=== PATIENT | female | born 1940 | race Caucasian/White ===

== ENCOUNTER → 2016-07-25 | Outpatient (CLI) | payer MEDICARE, BC ==
[~2016-07-25] MED LIST: ASA325 MG PO; CERAVE453 GM TP; COLACE-DPS100 MG PO; DULCOLAX-DPS5 MG PO; FLEXERIL DPS5 MG PO; MIRALAX PACKET17 GM PO; NEURONTIN DPS300 MG PO; OMEGA-3 KRILL1 EAC3 PO; OXY IR DPS5 MG PO; PROBIOTIC1 EAC1 PO; PROTONIX40 MG PO; SENOKOT S1 TAB PO; SYNTHROID100 MCG PO; THERAPEUTIC MUL1 TAB PO; TYLENOL DPS325 MG PO; ULTRAM DPS50 MG PO; VITAMIN D-32000 UNI1 PO; VITAMIN D1000 UNI1 PO
== END | disposition home or self-care (01) ==
LOC: PTH.S 08:58
DX: Z01.818 Encounter for other preprocedural examination (principal); I10 Essential (primary) hypertension

== ENCOUNTER 2016-08-08 05:37 | Inpatient (IN) | payer MEDICARE, BC ==
[~2016-08-08] VITALS: Ht 162.6 cm; Wt 75.0 kg
--- NOTE | ~2016-08-08 | OR ---
ADMIT: 08/08/2016 RM/LOC: [facility] MR#: [id number] [address] GENO MARTINEZ [address] [place] [address] Operative/Delivery Room Report SEX: F AGE: 76 : 1940 SURGERY DATE: 08/08/2016 SURGEON: Bunny Mera MD [facility] CONSULTANT: Chano Rivero PA-C PREOPERATIVE DIAGNOSIS: Left hip degenerative joint disease. POSTOPERATIVE DIAGNOSIS: Left hip degenerative joint disease. PROCEDURES: 1. Left anterior total hip arthroplasty. 2. Intra-articular Exparel block. ANESTHESIA: Spinal. COMPLICATIONS: None. ESTIMATED BLOOD LOSS: 150 mL. COMPONENTS: 1. A 50 mm Gription pinnacle cup. 2. Two acetabular screws. 3. A hole eliminator. 4. A neutral 32 mm AltrX liner. 5. An 11 mm standard offset Corail stem. 6. A +1 x 32 mm metal head. DESCRIPTION OF PROCEDURE: The patient was taken to the operating room. The correct hip was identified and marked in the preop holding area. The preoperative leg lengths were documented. The patient received a spinal anesthetic. At that point, the patient had traction boots applied. The patient was placed on the AUBURN operative table. A perfect fluoroscopic AP pelvis was obtained along with a perfect AP of the operative hip and printed for preoperative templating purposes. At that point, the left hip was prepped and draped in a standard fashion and an anterior approach was performed. An incision was made lateral and inferior to the anterior superior iliac spine extending distally. Dissection was carried through subcutaneous tissue down to the tensor fascia. The fibers of the tensor fascia were identified in oblique fashion. The tensor fascia was then opened up along its muscle fibers. An Allis clamp was placed on the anterior fascial border. The tensor muscle itself was then swept off with blunt dissection and retracted posteriorly. At that point, the rectus was elevated off the anterior hip capsule. The lateral circumflex vessels were identified and cauterized. A Cobra retractor was placed above the superior femoral neck to retract the tensor posteriorly. The rest of the rectus was elevated off the anterior hip capsule and a second retractor was placed around the medial femoral neck. An L-shaped capsulotomy was performed through the hip capsule down to the intertrochanteric line and extended along the intertrochanteric line to the ADMIT: 08/08/2016 RM/LOC: [address] [facility] MR#: [id number] [address] GENO MARTINEZ [address] [place] [address] Operative/Delivery Room Report SEX: F AGE: 76 : 1940 level of the lesser trochanter. Tag stitches were placed in the medial and lateral border of the hip capsule. We also released the superior hip capsule out of the trochanteric shoulder region. At that point, we placed our Cobra retractors in an intra-articular fashion for improved exposure to complete our capsular releases intra-articularly. A femoral neck cut was then made based on templating using the trochanteric shoulder as a bony landmark. We then externally rotated the hip 20 degrees for improved exposure and removed the femoral head from the acetabulum with no undue difficulty. Once the femoral head was removed, we again completed our capsular release around the inferior femoral neck to the level of lesser trochanter, released the superior capsule off the greater trochanteric shoulder in its entirety. We then placed slight traction on the femur in 20 degrees external rotation and placed a blunt-tip Cobra retractor over the anterior acetabular border. A second blunt Cobra was placed around the posterior acetabular border. All the remaining labrum was excised and an episiotomy performed to the inferior capsule to improve exposure. We cauterized the fovea and removed any remaining tissue in the depth of the acetabulum. We sequentially reamed the acetabulum under direct visualization up to a 51 size reamer. Impacted a 52 Gription [place] cup. Two acetabular screws were now placed with good purchase. Any peripheral osteophytes were circumferentially removed around the acetabular component. A hole eliminator was placed in the acetabular component and a neutral 32-mm AltrX liner was impacted within the acetabular component. A partial intra- articular block with Exparel was performed at this point in time. Once our acetabular preparation was completed, all the acetabular retractors were removed. We then exposed the femur by rotating it into neutral position and taking all traction off the femur. A femoral elevating hook was placed posterior to the trochanteric ridge. The foot was dropped down to 45 degrees and the leg maximally externally rotated no undue tension. We made sure our inferior capsular release was complete and placed a #1 retractor over the tip of the trochanter. Any remaining capsule was released off the tip of the trochanter and the piriformis tendon and a conjoined tendon were also released for exposure. At that point, you could feel the femur give, and we were able to elevate it up and out of the wound. The femur was externally rotated to approximately 120 degrees and the foot dropped to the floor as the leg was adducted. The trochanteric elevating hook was manually pulled in the anterior lateral direction as the elevating bar was raised to support it. At that point, we had excellent femoral exposure. A [place] retractor was placed over the tip of the trochanter and a femoral neck retractor around the medial calcar region to improve exposure. The proximal femur was opened with a box osteotome and a canal finder was used to identify the femoral canal. The proximal femur was sequentially broached up to an 11 mm Corail broach. We did over ream the distal canal to be sure we did not have a distal femoral fit. At that point, we left the broach in the canal and calcar planed the neck. We then reduced the hip with a standard/high off-set femoral neck and a +1 X 32- mm head. All the retractors and femoral hook were removed. Using manual traction, we were able to reduce the hip into the acetabulum with no undue difficulty. A perfect fluoroscopic AP of the pelvis followed by a perfect AP of the hip was obtained and appropriate leg length and offset were confirmed. ADMIT: 08/08/2016 RM/LOC: [address] [facility] MR#: [id number] [address] GENO MARTINEZ [address] [place] [address] Operative/Delivery Room Report SEX: F AGE: 76 : 1940 We replaced our femoral elevating hook posterior to the trochanter. A bone hook and manual traction were used to dislocate the hip, again externally rotating the femur in its entirety as the foot was dropped to the floor and leg adducted. We removed the trial components, replaced a [place] retractor, and a femoral neck retractor. The broach was removed and the appropriate real components opened. We then impacted a size 11 mm standard offset Corail stem down the femoral canal with excellent press-fit. We impacted a +1 x 32 mm metal head on the trunnion. All retractors were removed, using manual traction the hip was reduced, and again was found to be stable. A final fluoroscopic AP pelvis and AP hip was obtained to confirm appropriate leg length, offset, and component positioning. We then irrigated out the wounds thoroughly and repaired the anterior capsular structures with #5 Ti-Cron. Our intra-articular Exparel block was completed including all soft tissues. The tensor fascia was repaired with a running and interrupted 0 Vicryl suture. We closed subQ with 2-0 Vicryl and ran a subcuticular Monocryl stitch. A Prineo hip wound dressing was applied and sterile dressings applied. The patient was taken off the HANA table, transferred to a standard OR bed, and taken to the recovery room in stable condition with no complications. Bunny Mera MD/ umu JOB #: [id number] CC: Bunny Mera, Attending Physician Natalie Zhao, Family Physician
[2016-08-10] MEDS ORDERED: SYNTHROID100 MCG PO (14:55)
[2016-08-10] MEDS ORDERED: NEURONTIN DPS300 MG PO ×2 (14:55→14:56)
[2016-08-10] MEDS ORDERED: THERAPEUTIC MUL1 TAB PO (14:56)
[2016-08-10] MEDS ORDERED: VITAMIN D1000 UNI1 PO (14:57)
[2016-08-10] MEDS ORDERED: OMEGA-3 KRILL1 EAC3 PO ×2 (14:57)
[2016-08-10] MEDS ORDERED: COLACE-DPS100 MG PO (14:58)
[2016-08-10] MEDS ORDERED: VITAMIN D-32000 UNI1 PO (14:58)
[2016-08-10] MEDS ORDERED: CERAVE453 GM TP (14:58)
[2016-08-10] MEDS ORDERED: PROBIOTIC1 EAC1 PO (14:58)
[2016-08-10] MEDS ORDERED: SENOKOT S1 TAB PO (14:59)
[2016-08-10] MEDS ORDERED: MIRALAX PACKET17 GM PO (14:59)
[2016-08-10] MEDS ORDERED: PROTONIX40 MG PO (14:59)
[2016-08-10] MEDS ORDERED: ASA325 MG PO (14:59)
[2016-08-10] MEDS ORDERED: TYLENOL DPS325 MG PO (15:00)
[2016-08-10] MEDS ORDERED: FLEXERIL DPS5 MG PO (15:05)
[2016-08-10] MEDS ORDERED: DULCOLAX-DPS5 MG PO (15:05)
[2016-08-10] MEDS ORDERED: ULTRAM DPS50 MG PO (15:05)
[2016-08-10] MEDS ORDERED: OXY IR DPS5 MG PO (15:06)
--- NOTE | 2016-08-25 07:45 | HP ---
ADMIT: 08/08/2016 RM/LOC: [facility] MR#: [id number] [address] GENO MARTINEZ [address] [place] [address] Pre-OP History and Physical SEX: F AGE: 76 : 1940 DATE OF SERVICE: CHIEF COMPLAINT: Hip pain. HISTORY OF PRESENT ILLNESS: The patient is a 76-year-old female complaining of chronic bilateral hip pain. Her hip pain limits her activity. She has failed conservative care. She has known hip arthritis, now being admitted for total hip arthroplasty. PAST MEDICAL HISTORY: Past medical problems include hypertension and chronic back pain. PAST SURGICAL HISTORY: Include a hysterectomy, back surgery, D and C. MEDICATIONS: Include: 1. [place]. 2. Vitamins. 3. Gabapentin. 4. Levothyroxine. 5. Lisinopril. ALLERGIES: NONE. SOCIAL HISTORY: Denies any tobacco or alcohol use. REVIEW OF SYSTEMS: Negative. PHYSICAL EXAMINATION: Healthy-appearing female. Walks with very antalgic gait on both lower extremities. Uses a walker to ambulate. We can internally rotate both hips to zero, externally rotate to 45. Range of motion of the hips reproduces thigh and groin pain. Legs are neurovascularly intact. DIAGNOSTIC DATA: X-rays AP, lateral, shows advanced bilateral hip arthritis. No joint space remaining. Peripheral osteophytes. IMPRESSION: Advanced bilateral hip degenerative joint disease. PLAN: We talked about different options. She has failed conservative care. Plan on doing a left anterior total hip arthroplasty. She is aware of the risks, benefits, and options and agreed to proceed. She has been seen and cleared from a medical standpoint. Bnuny Mera MD/ umu JOB #: [id number] CC: Bunny Mera, Attending Physician ADMIT: 08/08/2016 RM/LOC: [facility] MR#: [id number] [address] GENO MARTINEZ [address] [place] [address] Pre-OP History and Physical SEX: F AGE: 76 : 1940 Natalie Zhao, Family Physician
--- NOTE | 2016-09-04 07:05 | DS ---
ADMIT: 08/08/2016 RM/LOC: [address] [facility] MR#: [id number] [address] GENO MARTINEZ [address] [place] [address] General Discharge Summary SEX: F AGE: 76 : 1940 ADMISSION DATE: 08/08/2016 DISCHARGE DATE: 08/09/2016 REASON FOR ADMISSION: Elective left anterior total hip arthroplasty after failing conservative care. PAST MEDICAL HISTORY: Including hypertension and chronic back pain. PAST SURGICAL HISTORY: Includes a hysterectomy, back surgery, and dilation and curettage. PREOPERATIVE DIAGNOSIS: Left hip degenerative joint disease. POSTOPERATIVE DIAGNOSIS: Left hip degenerative joint disease. PROCEDURES PERFORMED: 1. Left anterior total hip arthroplasty. 2. Intra-articular Exparel block. SURGEON: Bunny Mera MD WEDGER: Chano Rivero PA-C ANESTHESIA: Spinal. COMPLICATIONS: None. ESTIMATED BLOOD LOSS: 150 mL. HOSPITAL COURSE: The patient was admitted on 08/08/2016 for elective left anterior total hip arthroplasty done by Dr. Mera without any complications. The patient tolerated the procedure well. Postoperatively, the patient did well with pain control without having much pain throughout the first night after surgery. As expected, she did suffer from acute blood loss anemia. Her hemoglobin dropped to 10.8 on 08/09/2016, but she remained hemodynamically stable and did not require blood transfusion. By postoperative day #2, she was doing well with Physical Therapy. She was safe, stable, and ready for discharge home with plans for outpatient physical therapy exercises done at home. DISCHARGE MEDICATIONS: 1. Levothyroxine 100 mcg every day. 2. Gabapentin 300 mg daily in the morning. 3. Gabapentin 600 mg in the evening. 4. Multivitamin every day. 5. [place]-3 vitamin daily in the morning and in the evening. 6. Vitamin D 1000 units in the morning and 2000 units in the evening. 7. Probiotic supplement everyday. 8. Docusate sodium 100 mg twice daily. ADMIT: 08/08/2016 RM/LOC: [address] [facility] MR#: [id number] [address] GENO MARTINEZ [address] [place] [address] General Discharge Summary SEX: F AGE: 76 : 1940 9. CeraVe cream daily as needed for dry skin. 10.Aspirin 325 mg at bedtime for 35 days. 11.Protonix 40 mg at bedtime for 35 days. 12.MiraLax 17 g everyday. 13.Senokot 2 tablets at bedtime. 14.Tylenol 650 mg every 6 hours as needed for 14 days. 15.Ultram 50 mg 1 to 2 tablets every 6 hours as needed for pain. 16.Dulcolax 5 mg twice daily as needed. 17.Flexeril 5 mg 1 to 2 tablets every 8 hours as needed. 18.Oxycodone IR 5 mg 1 to 2 tablets every 4 hours as needed for breakthrough pain. DISCHARGE INSTRUCTIONS: The patient was discharged home with plans for outpatient physical therapy exercises done at home. Follow up in the orthopedic office in 2 weeks for wound check, in 6 weeks with x-ray. Follow up with primary care as directed. MASSIEL Manjarrez / Bunny Mera MD / umu JOB #: [id number] CC: Bunny Mera MD, Attending Physician Natalie Zhao APRN, Family Physician
== END 2016-08-09 16:18 | disposition home or self-care (01) | DRG 470 ==
LOC: 5MS 05:37 → WOR 05:37 → 5MS 09:25
PROVIDERS: ADMIT Orthopaedic Surgery
PROC: 0SRB02A Replacement of Left Hip Joint with Metal on Polyethylene Synthetic Substitute, Uncemented, Open Approach (ICD-10-PCS; principal; 2016-08-08)
DX: M16.12 Unilateral primary osteoarthritis, left hip (principal); I10 Essential (primary) hypertension; D62 Acute posthemorrhagic anemia; G89.29 Other chronic pain; E78.5 Hyperlipidemia, unspecified; M48.00 Spinal stenosis, site unspecified; E03.9 Hypothyroidism, unspecified; K59.00 Constipation, unspecified